=== PATIENT | male | born 1980 | race Caucasian/White ===

== ENCOUNTER 2018-04-12 19:52 | Emergency (ER) | payer OTHER ==
[~2018-04-12] VITALS: Ht 172.7 cm; Wt 74.8 kg
[~2018-04-12 19:52] MED LIST: BENTYL10 MG PO; BENTYL20 MG PO; CODACE30 PO; IBUP400 PO; MIRT30 PO; Norco 5-325 Ta1 EACH PO; OLAN10 PO; PROM25 PO; Penicillin V P500 MG PO; Percocet 5-3251 EACH PO; Prilosec20 MG PO; Zofran Odt4 MG SL
== END 2018-04-12 21:00 | disposition left against medical advice (07) ==
LOC: ER 19:52
DX: Z53.21 Procedure and treatment not carried out due to patient leaving prior to being seen by health care provider (principal)

== ENCOUNTER 2018-07-14 09:36 | Emergency (ER) | payer OTHER ==
[~2018-07-14] VITALS: Ht 182.9 cm; Wt 81.7 kg
[~2018-07-14 09:36] MED LIST changes: +ARIP15 PO; +Prozac40 MG PO; +QUET300 PO
[2018-07-14] MEDS ORDERED: HYDHCL25 PO (10:28)
== END 2018-07-14 10:34 | disposition home or self-care (01) ==
LOC: ER 09:36
DX: J02.9 Acute pharyngitis, unspecified (principal); F41.9 Anxiety disorder, unspecified; G47.00 Insomnia, unspecified; Z79.899 Other long term (current) drug therapy; Z91.013 Allergy to seafood; F25.9 Schizoaffective disorder, unspecified
CPT/HCPCS: 87081; 87430; 99283

== ENCOUNTER 2019-08-29 10:39 | Emergency (ER) | payer OTHER ==
[~2019-08-29] VITALS: Ht 182.9 cm; Wt 79.4 kg
[~2019-08-29 10:39] MED LIST changes: +HYDHCL25 PO
== END 2019-08-29 12:44 | disposition home or self-care (01) ==
LOC: ER 10:39
DX: F15.129 Other stimulant abuse with intoxication, unspecified (principal); F25.9 Schizoaffective disorder, unspecified; F17.200 Nicotine dependence, unspecified, uncomplicated; Z91.013 Allergy to seafood; Z79.899 Other long term (current) drug therapy
CPT/HCPCS: 99284; A9270-GY

== ENCOUNTER 2019-12-31 22:10 | Emergency (ER) | payer OTHER ==
[~2019-12-31] VITALS: Ht 182.9 cm; Wt 79.4 kg
[2019-12-31] MEDS ORDERED: AMIT10 PO (22:25)
== END 2019-12-31 23:10 | disposition home or self-care (01) ==
LOC: ER 22:10
DX: R44.0 Auditory hallucinations (principal); F15.10 Other stimulant abuse, uncomplicated; Z91.013 Allergy to seafood
CPT/HCPCS: 99284

== ENCOUNTER 2020-11-24 23:04 | Emergency (ER) | payer OTHER ==
[~2020-11-24] VITALS: Ht 182.9 cm; Wt 90.7 kg
[~2020-11-24 23:04] MED LIST changes: +AMIT10 PO
[2020-11-25 00:32] LABS: BASOPHILS ABSOLUTE AUTO 0.04 K/mm3 (0.00-0.23); BASOPHILS PERCENT AUTO 1 % (0-2); EOSINOPHILS PERCENT AUTO 2 % (0-6); Hematocrit 42.2 % (37.0-53.0); Hemoglobin 14.9 g/dL (13.5-17.5); IMMATURE GRAN ABSOLUTE AUTO 0.02 K/mm3 (0.00-0.10); IMMATURE GRAN PERCENT AUTO 0 % (0-1); LYMPHOCYTES ABSOLUTE AUTO 2.35 K/mm3 (0.84-5.20); LYMPHOCYTES PERCENT AUTO 28 % (21-46); MONOCYTES ABSOLUTE AUTO 0.82 K/mm3 (0.16-1.47); MONOCYTES PERCENT AUTO 10 % (4-13); Mean Corpuscular HGB 29.9 pg (26.0-34.0); Mean Corpuscular HGB Conc 35.3 g/dL (31.5-36.5); Mean Corpuscular Volume 85 fL (80-100); Mean Platelet Volume 9.4 fL (9.1-12.4); NEUTROPHILS PERCENT AUTO 59 % (41-73); Platelet Count 232 K/mm3 (150-400); RDW Coefficient Variation 12.2 % (11.7-14.2); RDW Standard Deviation 37.5 fL (35.1-46.3); Red Blood Cell Count 4.98 M/mm3 (4.30-5.90); White Blood Cell Count 8.33 K/mm3 (4.00-11.30)
[2020-11-25 00:51] LABS: Alanine Aminotransfer (ALT/SGP 19 U/L (12-78); Albumin/Globulin Ratio 1.1 (0.8-1.8); Alk Phos 97 U/L (50-136); Anion Gap 6 mmol/L (6-16); Aspartate Aminotrans (AST/SGOT 15 U/L (12-37); Bilirubin, Total 0.3 mg/dL (0.1-1.0); Blood Urea Nitrogen 15 mg/dL (8-24); Bun/Creatinine Ratio 14.3 (12.0-20.0); CO2, Blood 29 mmol/L (21-32); Calcium, Blood 8.6 mg/dL (8.5-10.1); Chloride, Blood 103 mmol/L (98-108); Creatinine, Blood 1.05 mg/dL (0.60-1.20); Ethanol (Alcohol), Blood, Med <3 mg/dL; Globulin, Blood 3.5 g/dL (2.2-4.0); Glomerular Filtration Rate >60 (60-); Glucose, Blood 102 mg/dL (70-99); Potassium, Blood 3.8 mmol/L (3.5-5.5); Sodium, Blood 138 mmol/L (136-145); Total Protein, Blood 7.5 g/dL (6.4-8.2)
[2020-11-25 00:55] LABS: U Amphetamine Screen Not Detected; U Barbituate Screen Not Detected; U Benzodiazapine Screen Not Detected; U Buprenorphine Screen Not Detected; U Cannabinoids Screen Not Detected; U Cocaine Screen Not Detected; U Methadone Screen Not Detected; U Methamphetamine Screen Not Detected; U Opiates Screen Not Detected; U Oxycodone Screen Not Detected; U Phencyclidine Screen Not Detected; U Propoxyphene Screen Not Detected
[2020-11-25] MEDS ORDERED: OLANZAPINE20 M1 PO (03:49)
[2020-11-25] MEDS ORDERED: Prozac40 MG PO (03:49)
== END 2020-11-25 03:59 | disposition home or self-care (01) ==
LOC: ER 23:04
PROVIDERS: Emergency Medicine
DX: R44.0 Auditory hallucinations (principal); Z76.0 Encounter for issue of repeat prescription
CPT/HCPCS: 36415; 80053; 85025; 99285; A9270; G0480; Q3014

== ENCOUNTER 2023-08-29 17:54 | Observation (INO) | payer OTHER ==
[~2023-08-29] VITALS: Ht 182.9 cm; Wt 72.6 kg
[~2023-08-29 17:54] MED LIST changes: +OLANZAPINE20 M1 PO
[2023-08-29 18:52] LABS: BASOPHILS ABSOLUTE AUTO 0.05 K/mm3 (0.00-0.23); BASOPHILS PERCENT AUTO 1 % (0-2); EOSINOPHILS ABSOLUTE AUTO 0.01 K/mm3 (0.00-0.68); EOSINOPHILS PERCENT AUTO 0 % (0-6); Hematocrit 43.4 % (37.0-53.0); Hemoglobin 14.8 g/dL (13.5-17.5); IMMATURE GRAN ABSOLUTE AUTO 0.02 K/mm3 (0.00-0.10); IMMATURE GRAN PERCENT AUTO 0 % (0-1); LYMPHOCYTES ABSOLUTE AUTO 2.59 K/mm3 (0.84-5.20); LYMPHOCYTES PERCENT AUTO 25 % (21-46); MONOCYTES ABSOLUTE AUTO 1.04 K/mm3 (0.16-1.47); MONOCYTES PERCENT AUTO 10 % (4-13); Mean Corpuscular HGB 30.6 pg (26.0-34.0); Mean Corpuscular HGB Conc 34.1 g/dL (31.5-36.5); Mean Corpuscular Volume 90 fL (80-100); Mean Platelet Volume 9.3 fL (9.1-12.4); NEUTROPHILS ABSOLUTE AUTO 6.76 K/mm3 (1.96-9.15); NEUTROPHILS PERCENT AUTO 65 % (41-73); Platelet Count 301 K/mm3 (150-400); RDW Standard Deviation 39.3 fL (35.1-46.3); Red Blood Cell Count 4.84 M/mm3 (4.30-5.90); White Blood Cell Count 10.47 K/mm3 (4.00-11.30)
[2023-08-29] MEDS ORDERED: OLANZapine 10 MG Tab PO ONE (19:10)
[2023-08-29 19:13] LABS: Albumin, Blood 4.2 g/dL (3.4-5.0); Albumin/Globulin Ratio 1.2 (0.8-1.8); Bilirubin, Total 0.8 mg/dL (0.1-1.0); Bun/Creatinine Ratio 20.9 (12.0-20.0); Calcium, Blood 9.4 mg/dL (8.5-10.1); Creatinine, Blood 1.39 mg/dL (0.60-1.20); Globulin, Blood 3.5 g/dL (2.2-4.0); Potassium, Blood 4.3 mmol/L (3.5-5.5); Total Protein, Blood 7.7 g/dL (6.4-8.2)
[2023-08-29] MEDS ORDERED: Haloperidol Lactate Inj. 5 MG/ML Injection IM ONE (19:40)
[2023-08-29] MEDS ORDERED: DiphenhydrAMINE HCl 50 MG/ML 1ML Vial IM ONE (19:40)
[2023-08-29] MEDS ORDERED: LORazepam 2 MG/ML 1ML Injection IM ONE (19:40)
[2023-08-29 20:05] LABS: Influenza A, PCR NEGATIVE (NEGATIVE); Influenza B, PCR NEGATIVE (NEGATIVE); Resp Syncytial Virus, PCR NEGATIVE (NEGATIVE); SARS-Cov-2 (COVID-19) PCR, MMC NEGATIVE (NEGATIVE)
[2023-08-31] MEDS ORDERED: OLANZapine 10 MG Tab PO SCH ×3 (21:00)
[2023-09-01] MEDS ORDERED: ZYPREXA PO (10:34)
[2023-09-01 10:38] VITALS: BP 122/77
== END 2023-09-01 10:41 | disposition home or self-care (01) ==
LOC: ER 17:54 → EOR 17:55
PROVIDERS: Physician Assistant; ADMIT Emergency Medicine
DX: F20.0 Paranoid schizophrenia (principal); Z91.013 Allergy to seafood; Z11.52 Encounter for screening for COVID-19
CPT/HCPCS: 0241U; 80053; 85025; 86592; 93005; 93010; 99285-25; A9270; G0378; J1200; J1630; J2060